=== PATIENT | female | born 1980 | race Caucasian/White ===

== ENCOUNTER 2017-03-12 17:56 | Emergency (ER) | payer SELFPAY ==
[~2017-03-12] VITALS: Ht 157.5 cm; Wt 70.0 kg
[~2017-03-12 17:56] MED LIST: CEPH500C3 PO; CYMB60CA PO; HYDR12.56; MELO15 PO; ROBA500T PO
[2017-03-12 18:00] VITALS: BP 154/95; PULSE 96; RESP 16; TEMP 98.9; O2SAT 100
[2017-03-12] MEDS ORDERED: VENL75TA PO (18:17)
[2017-03-12] MEDS ORDERED: LOSA50TA PO (18:17)
[2017-03-12] MEDS ORDERED: CLON0.5T PO (18:17)
[2017-03-12] MEDS ORDERED: TRIA0.1L TOPICAL (18:54)
[2017-03-12] MEDS ORDERED: PRED50 PO (18:55)
[2017-03-12] MEDS ORDERED: diphenhydrAMINE HCL 50 MG/ML VIAL IM ONE (19:00)
--- NOTE | 2017-03-12 19:04 | PD ---
HPI . Contact dermatitis Chief Complaint: Skin Problem Time Seen by Provider: 18:40 Travel History International Travel<30 days: No Contact w/Intl Traveler<30days: No Traveled to known affect area: No History of Present Illness HPI Well-nourished, well-developed nontoxic appearing 37-year-old female presents emergency department for evaluation of itchy red rash covering abdomen, back, and upper arms. Patient recently had a change in her living conditions and a lot of her belongings were thrown in a garbage can. Patient went into the garbage can to retrieve her belongings and subsequently has developed this itchy rash. Patient's only major medical history is hypertension and she takes losartan daily for. Patient states she did have a fever earlier today but is afebrile in triage. Patient denies any chest pain, chills, malaise, abdominal pain, nausea, vomiting, diarrhea. PFSH Past Medical History Anxiety: Yes Depression: Yes Diminished Hearing: No Hypertension: Yes Reproductive: Yes (OVARIAN CYST) Immunizations Current: Yes Influenza Vaccination: Yes ?: Not LMP: 02/21/17 : 4 Para: 2 Miscarriage: 1 : 1 Social History Alcohol Use: Yes (rarely) Tobacco Use: Yes Substance Use: No Allergies-Medications (Allergen,Severity, Reaction): Coded Allergies: No Known Allergies (Verified Adverse Reaction, Unknown, 03/12/17) Reported Meds & Prescriptions Reported Meds & Active Scripts Active Reported Clonazepam 0.5 Mg Tab 0.5 Mg PO BID PRN Effexor (Venlafaxine HCl) 75 Mg Tab 75 Mg PO Q12H Losartan (Losartan Potassium) 50 Mg Tab 50 Mg PO BID Review of Systems Except as stated in HPI: all other systems reviewed are Neg Physical Exam Narrative GENERAL: Well-nourished, well-developed 37 year old female patient in no acute distress. Nontoxic appearing. SKIN: Splotchy erythematous patches covering abdomen, back, and upper arms. HEAD: Normocephalic. Atraumatic. EYES: No scleral icterus. No injection or drainage. NECK: Supple, trachea midline. No JVD or lymphadenopathy. CARDIOVASCULAR: Regular rate and rhythm without murmurs, gallops, or rubs. RESPIRATORY: Breath sounds equal bilaterally. No accessory muscle use. GASTROINTESTINAL: Abdomen soft, non-tender, nondistended. MUSCULOSKELETAL: No cyanosis, or edema. BACK: Nontender without obvious deformity. No CVA tenderness. Data Data Last Documented VS Vital Signs Date Time Temp Pulse Resp B/P (MAP) Pulse Ox O2 Delivery O2 Flow Rate FiO2 03/12/17 18:00 98.9 96 16 154/95 (114) 100 Orders Orders Diphenhydramine Inj (Benadryl Inj) (03/12/17 19:00) MDM Medical Decision Making Medical Screen Exam Complete: Yes Emergency Medical Condition: Yes Differential Diagnosis Differential diagnoses include but not limited to contact dermatitis, allergic dermatitis, cellulitis, Narrative Course 37-year-old female patient presents emergency department for evaluation of an itchy splotchy red rash covering her abdomen, back and upper arms. Patient states the rash started yesterday when she had to jump into a garbage can to retrieve some of her belongings. Patient is nontoxic appearing. Patient states she had a fever earlier at home but is afebrile in triage. There is no signs of local infection including edema, streaking, purulent drainage at this time. Patient is scratching arms and stomach. Patient instructed to use Benadryl to manage itching to reduce scratching which will reduce the risk of secondary infection. I am injection of Benadryl given in our facility. Patient discharged home with a prescription for prednisone, triamcinolone cream and instructions to use [id number] Benadryl and ibuprofen to manage symptoms. Patient instructed to return the emergency Department with any worsening condition or signs of secondary infection. Diagnosis Primary Impression: Contact dermatitis Qualified Codes: L25.9 - Unspecified contact dermatitis, unspecified cause Referrals: Primary Care Physician Patient Instructions: Contact Dermatitis (ED), General Instructions Additional Instructions: Please return to emergency department if your symptoms return or worsen. Follow up with your primary care provider. Take medications as prescribed. Keep area clean and dry. Use Benadryl to manage itching. May use ibuprofen to manage pain and swelling. Med/Other Pt SpecificInfo: Prescription(s) given Scripts Prednisone (Prednisone) 50 Mg Tab 50 MG PO DAILY for 3 Days, #3 TAB 0 Refills Prov: Rupal Don Alayna JACI 03/12/17 Triamcinolone Topical (Triamcinolone Topical) 0.1% Lotn 1 APPLIC TOPICAL TID for Inflammation, #60 ML 0 Refills Prov: Rupal Don 03/12/17 Disposition: 01 DISCHARGE HOME Condition: Stable Rupal Don Mar 12, 2017 19:04
== END 2017-03-12 19:17 | disposition home or self-care (01) ==
LOC: PHEFT 17:56
DX: L25.9 Unspecified contact dermatitis, unspecified cause (principal); Z72.0 Tobacco use
CPT/HCPCS: 96372; 99284; J1200

== ENCOUNTER 2017-03-25 21:48 | Emergency (ER) | payer SELFPAY ==
[~2017-03-25] VITALS: Ht 157.5 cm; Wt 68.1 kg
[~2017-03-25 21:48] MED LIST changes: -CEPH500C3 PO; +CLON0.5T PO; -CYMB60CA PO; -HYDR12.56; +LOSA50TA PO; -MELO15 PO; +PRED50 PO; -ROBA500T PO; +TRIA0.1L TOPICAL; +VENL75TA PO
[2017-03-25 22:05] VITALS: BP 142/102; PULSE 64; PULSE 68; RESP 20; TEMP 99.1; O2SAT 99
[2017-03-25] MEDS ORDERED: SODIUM CHLORIDE 0.9% FLUSH 10 ML FLUSH IVF PRN (22:15)
[2017-03-25 22:19] LABS: AUTOMATED NEUTROPHIL # 4.4 TH/MM3 (1.8-7.7); BASOPHIL # 0.1 TH/MM3 (0-0.2); BASOPHIL % 0.8 % (0.0-2.0); EOSINOPHIL # 0.4 TH/MM3 (0-0.4); EOSINOPHIL % 5.2 % (0.0-4.0); HEMATOCRIT 37.6 % (35.0-46.0); LYMPH % 25.3 % (9.0-44.0); LYMPHOCYTE # 1.8 TH/MM3 (1.0-4.8); MEAN CELL VOLUME 72.8 FL (80.0-100.0); MEAN CORPUSCULAR HGB CONC 31.6 % (32.0-36.0); MONO % 6.5 % (0.0-8.0); NEUT % 62.2 % (16.0-70.0); PLATELET COUNT 299 TH/MM3 (150-450); RED BLOOD COUNT 5.17 MIL/MM3 (4.00-5.30); RED CELL DISTRIBUTION WIDTH 15.3 % (11.6-17.2); WHITE BLOOD COUNT 7.3 TH/MM3 (4.0-11.0)
[2017-03-25 22:25] LABS: CHLORIDE 103 MEQ/L (98-107); POTASSIUM 3.8 MEQ/L (3.5-5.1); SODIUM (NA) 136 MEQ/L (136-145)
[2017-03-25 22:29] LABS: ANION GAP 6 MEQ/L (5-15); APTT (PATIENT) 26.2 SEC (24.3-30.1); BICARBONATE 26.6 MEQ/L (21.0-32.0); BLOOD UREA NITROGEN 8 MG/DL (7-18); PROTHROMBIN TIME - PATIENT 10.9 SEC (9.8-11.6)
[2017-03-25 22:32] LABS: ALT (GPT) 18 U/L (10-53); AST (GOT) 9 U/L (15-37); GLOMERULAR FILTRATION RATE 69 ML/MIN (>89)
[2017-03-25 22:33] LABS: TOTAL BILIRUBIN ADULT 0.4 MG/DL (0.2-1.0)
[2017-03-25 22:35] LABS: ALKALINE PHOSPHATASE 68 U/L (45-117)
[2017-03-25 22:37] LABS: BETA HCG QUANT LESS THAN 1 MIU/ML (0-5)
--- NOTE | 2017-03-25 22:45 | RADRPT ---
EXAM DATE/TIME: 03/25/2017 22:18 [facility] COMPARISON: CHEST SINGLE AP, January 10, 2014, 16:02. INDICATIONS : Left arm pain and numbness today. MEDICAL HISTORY : None. SURGICAL HISTORY : None. ENCOUNTER: Initial ACUITY: 1 day PAIN SCORE: 4/10 LOCATION: Bilateral chest FINDINGS: A single view of the chest demonstrates the lungs to be symmetrically aerated without evidence of mas s, infiltrate or effusion. The cardiomediastinal contours are unremarkable. Osseous structures are intact. CONCLUSION: The lungs are clear. Coleman Hernandez MD on March 25, 2017 at 22:43 Board Certified Radiologist. This report was verified electronically.
[2017-03-25 22:46] LABS: HEMO FLAGS AUTO DIFF
[2017-03-25 22:52] LABS: CREATINE KINASE 68 U/L (26-192)
[2017-03-25 23:12] LABS: PLATELET ESTIMATE SMEAR NORMAL (NORMAL); PLATELET MORPHOLOGY NORMAL (NORMAL); SCAN/DIFF AUTO DIFF CONFIRMED
[2017-03-25 23:17] VITALS: BP 115/74; PULSE 58; RESP 20; O2SAT 97
[2017-03-25] MEDS ORDERED: PRIL20TA2 PO (23:18)
[2017-03-25] MEDS ORDERED: TRAM50TA PO (23:19)
[2017-03-25] MEDS ORDERED: ADDE20 PO (23:19)
--- NOTE | 2017-03-25 23:28 | RADRPT ---
EXAM DATE/TIME: 03/25/2017 22:57 [facility] COMPARISON: No previous studies available for comparison. INDICATIONS : Left arm pain and numbness. RADIATION DOSE: 60.01 CTDIvol (mGy) MEDICAL HISTORY : Hypertension. SURGICAL HISTORY : None. ENCOUNTER: Initial ACUITY: 1 day PAIN SCALE: 4/10 LOCATION: cranial TECHNIQUE: Multiple contiguous axial images were obtained of the head. Using automated exposure control and adj ustment of the mA and/or kV according to patient size, radiation dose was kept as low as reasonably a chievable to obtain optimal diagnostic quality images. DICOM format image data is available electro nically for review and comparison. FINDINGS: CEREBRUM: The ventricles are normal for age. No evidence of midline shift, mass lesion, hemorrhage or acute in farction. No extra-axial fluid collections are seen. POSTERIOR FOSSA: The cerebellum and brainstem are intact. The 4th ventricle is midline. The cerebellopontine angle i s unremarkable. EXTRACRANIAL: The visualized portion of the orbits is intact. SKULL: The calvaria is intact. No evidence of skull fracture. CONCLUSION: Negative noncontrast head CT. Efren Singer MD on March 25, 2017 at 23:26 Board Certified Radiologist. This report was verified electronically.
--- NOTE | 2017-03-25 23:36 | RADRPT ---
EXAM DATE/TIME: 03/25/2017 22:57 [facility] COMPARISON: No previous studies available for comparison. INDICATIONS : Left arm pain and numbness. RADIATION DOSE: 26.36 CTDIvol (mGy) MEDICAL HISTORY : Hypertension. SURGICAL HISTORY : None. ENCOUNTER: Initial ACUITY: 1 day PAIN SCALE: 4/10 LOCATION: neck TECHNIQUE: Volumetric scanning of the cervical spine was performed. Multiplanar reconstructions in the sagittal, coronal and oblique axial planes were performed. Using automated exposure control and adjustment o f the mA and/or kV according to patient size, radiation dose was kept as low as reasonably achievable to obtain optimal diagnostic quality images. DICOM format image data is available electronically f or review and comparison. FINDINGS: VERTEBRAE: Normal vertebral body height. ALIGNMENT: No evidence of subluxation. C2-C3: The bony spinal canal is normal in size. No evidence of disc bulge or herniation. The neural forami na are bilaterally patent. C3-C4: The bony spinal canal is normal in size. No evidence of disc bulge or herniation. The neural forami na are bilaterally patent. C4-C5: The disc has mild loss of height. There is mild uncovertebral and facet osteoarthritis on the left wi th mild left foraminal stenosis. C5-C6: The disc has moderate loss of height. A small, broad/diffuse disc osteophyte complex is present and w ith mild bilateral uncovertebral and facet osteoarthritis with hypertrophic bone formation. There is a superimposed moderate-sized left paracentral/foraminal disc protrusion. There is associated moderat e left foraminal stenosis. C6-C7: The bony spinal canal is normal in size. No evidence of disc bulge or herniation. The neural forami na are bilaterally patent. C7-T1: The bony spinal canal is normal in size. No evidence of disc bulge or herniation. The neural forami na are bilaterally patent. CONCLUSION: 1. Intact cervical spine. 2. Degenerative changes with mild left foraminal stenosis at C4/C5 and moderate left foraminal stenos is at C5/C6. Efren Singer MD on March 25, 2017 at 23:31 Board Certified Radiologist. This report was verified electronically.
--- NOTE | 2017-03-26 00:49 | PD ---
HPI Chief Complaint: Chest Pain Time Seen by Provider: 22:02 Travel History International Travel<30 days: No Contact w/Intl Traveler<30days: No Traveled to known affect area: No History of Present Illness HPI 37-year-old female with history of hypertension, anxiety, history for evaluation of 10 minutes of left arm pain and numbness as well as palpitations. Patient reports that she was well up until 10 minutes ago when she initially felt fatigued, then began experiencing her symptoms. Pain in her arm is moderate, dull, diffuse, no modifying factors. She denies trauma. No other paresthesias. No motor deficits. She complains of slight blurry vision. Patient admits to having history of anxiety/panic attacks, and believes that this may be exacerbating her symptoms. She is supposed to be on Klonopin, however has been out of this medication for the last 2-3 weeks. No known history of cardiac disease. No fevers or recent illness. PFSH Past Medical History ADD: Yes Anxiety: Yes Depression: Yes Diminished Hearing: No Hypertension: Yes Medical other: Yes (CHRONIC BACK PAIN ) Reproductive: Yes (OVARIAN CYST) Immunizations Current: Yes Tetanus Vaccination: < 5 Years Influenza Vaccination: Yes ?: Unknown LMP: 4 DAYS AGO : 5 Para: 3 Miscarriage: 1 : 1 Past Surgical History Section: Yes Social History Alcohol Use: No Tobacco Use: Yes (1/2 ppd ) Substance Use: No Allergies-Medications (Allergen,Severity, Reaction): Coded Allergies: No Known Allergies (Verified Adverse Reaction, Unknown, 03/25/17) Reported Meds & Prescriptions Reported Meds & Active Scripts Active Triamcinolone Topical (Triamcinolone Acetonide) 0.1% Lotn 1 Applic TOPICAL TID Reported Tramadol (Tramadol HCl) 50 Mg Tab 50 Mg PO Q8H PRN Adderall (Amphetamine-Dextroamphetamine) 20 Mg Tab 20 Mg PO BID Avoid late evening doses. Space doses at least 4 to 6 hours if more than once/day dosing. Prilosec (Omeprazole Magnesium) 20 Mg Tab 20 Mg PO DAILY Clonazepam 0.5 Mg Tab 0.5 Mg PO TID Effexor (Venlafaxine HCl) 75 Mg Tab 75 Mg PO Q12H Losartan (Losartan Potassium) 50 Mg Tab 50 Mg PO BID Review of Systems Except as stated in HPI: all other systems reviewed are Neg Physical Exam Narrative GENERAL: Well-developed, well-nourished, awake, alert, GCS 15, no apparent distress. SKIN: Focused skin assessment warm/dry. No rash. HEAD: Atraumatic. Normocephalic. EYES: Pupils equal, round, 3 mm, reactive to light. EOMI. No scleral icterus. No injection or drainage. ENT: Mucous membranes pink and moist. NECK: Trachea midline. No JVD. CARDIOVASCULAR: Regular rate and rhythm. RESPIRATORY: No accessory muscle use. Clear to auscultation. Breath sounds equal bilaterally. GASTROINTESTINAL: Abdomen soft, non-tender, nondistended. MUSCULOSKELETAL: No obvious deformities. No clubbing. No cyanosis. No edema. NEUROLOGICAL: Awake and alert. No obvious cranial nerve deficits. Motor grossly within normal limits. Normal speech. No focal deficits. Normal muscle strength in all 4 extremities. Patient has sensation in her left upper extremity, however states it feels numb. No other paresthesias. PSYCHIATRIC: Appropriate mood and affect; insight and judgment normal. Data Data Last Documented VS Vital Signs Date Time Temp Pulse Resp B/P (MAP) Pulse Ox O2 Delivery O2 Flow Rate FiO2 03/25/17 22:45 20 99 Room Air 03/25/17 22:05 99.1 68 142/102 (115) Orders Orders Electrocardiogram (03/25/17 22:02) Prothrombin Time / Inr (Pt) (03/25/17 22:02) Act Partial Throm Time (Ptt) (03/25/17 22:02) Complete Blood Count With Diff (03/25/17 22:02) Comprehensive Metabolic Panel (03/25/17 22:02) Creatine Kinase (Cpk) (03/25/17 22:02) Troponin I (03/25/17 22:02) Ct Brain W/O Iv Contrast(Rout) (03/25/17 22:02) Chest, Single Ap (03/25/17 22:02) Ecg Monitoring (03/25/17 22:02) Iv Access Insert/Monitor (03/25/17 22:02) Oximetry (03/25/17 22:02) Sodium Chloride 0.9% Flush (Ns Flush) (03/25/17 22:15) Ct Cerv Spine W/O Contrast (03/25/17 ) Beta Hcg (Quant/Titer) (03/25/17 22:02) Labs Laboratory Tests Test 03/25/17 22:05 White Blood Count 7.3 TH/MM3 Red Blood Count 5.17 MIL/MM3 Hemoglobin 11.9 GM/DL Hematocrit 37.6 % Mean Corpuscular Volume 72.8 FL Mean Corpuscular Hemoglobin 23.0 PG Mean Corpuscular Hemoglobin Concent 31.6 % Red Cell Distribution Width 15.3 % Platelet Count 299 TH/MM3 Mean Platelet Volume 7.9 FL Neutrophils (%) (Auto) 62.2 % Lymphocytes (%) (Auto) 25.3 % Monocytes (%) (Auto) 6.5 % Eosinophils (%) (Auto) 5.2 % Basophils (%) (Auto) 0.8 % Neutrophils # (Auto) 4.4 TH/MM3 Lymphocytes # (Auto) 1.8 TH/MM3 Monocytes # (Auto) 0.5 TH/MM3 Eosinophils # (Auto) 0.4 TH/MM3 Basophils # (Auto) 0.1 TH/MM3 CBC Comment AUTO DIFF Differential Comment AUTO DIFF CONFIRMED Platelet Estimate NORMAL Platelet Morphology Comment NORMAL Prothrombin Time 10.9 SEC Prothromb Time International Ratio 1.0 RATIO Activated Partial Thromboplast Time 26.2 SEC Blood Urea Nitrogen 8 MG/DL Creatinine 0.92 MG/DL Random Glucose 82 MG/DL Total Protein 7.7 GM/DL Albumin 3.7 GM/DL Calcium Level 8.5 MG/DL Alkaline Phosphatase 68 U/L Aspartate Amino Transf (AST/SGOT) 9 U/L Alanine Aminotransferase (ALT/SGPT) 18 U/L Total Bilirubin 0.4 MG/DL Sodium Level 136 MEQ/L Potassium Level 3.8 MEQ/L Chloride Level 103 MEQ/L Carbon Dioxide Level 26.6 MEQ/L Anion Gap 6 MEQ/L Estimat Glomerular Filtration Rate 69 ML/MIN Total Creatine Kinase 68 U/L Troponin I LESS THAN 0.02 NG/ML Human Chorionic Gonadotropin, Quant LESS THAN 1 MIU/ML MDM Medical Decision Making Medical Screen Exam Complete: Yes Emergency Medical Condition: Yes Interpretation(s) EKG: Sinus, rate 59, normal axis, normal intervals, no acute ischemic abnormality. Differential Diagnosis Panic attack, anxiety, ACS, pneumothorax, PE, CVA, cervical disc herniation Narrative Course Initial vital signs show heart rate 64, blood pressure 142/102, pulse ox 99% on room air, oral temp of 99.1F. Repeat vital signs show pressure 115/64. CBC: WBC 7.3, hemoglobin 11.9, hematocrit 37.6, platelets 299. CMP is unremarkable. Cardiac enzymes are negative. Beta hCG is negative. Patient was probably taken to CT scan as the nurse assigned to her was concerned about possible CVA. The patient's symptoms consist of pain and paresthesias to her left arm. There are no focal deficits on exam. Normal muscle strength in all 4 extremities. No facial droop, dysarthria, aphasia, or slurred speech. This is not consistent with CVA, therefore stroke alert was not initiated. Chest x-ray: The lungs are clear. CT head: Negative noncontrast head CT. CT cervical spine: CONCLUSION: 1. Intact cervical spine. 2. Degenerative changes with mild left foraminal stenosis at C4/C5 and moderate left foraminal stenosis at C5/C6. Patient was made aware of all findings, and on reassessment she states her symptoms have significantly improved. She is no longer feeling palpitations. She still has some pain down her left arm. Numbness has improved. Again the patient signs and symptoms were not consistent with CVA or even TIA. I also do not believe her symptoms are consistent with ACS. Patient also agrees with this and believes that her symptoms are more likely related to anxiety/panic attack. I had a lengthy discussion with the patient, and believe that she is stable for discharge home with further workup as an outpatient. I will give her the information to the [facility] to follow up with this week as she no longer has a primary care physician. I have also advised that she follow-up with her psychiatrist as soon as possible. Patient informed on when to return to the emergency department. She verbalizes understanding and agreement with plan. Diagnosis Primary Impression: Paresthesia of left upper extremity Additional Impression: Palpitations Referrals: [facility] 3 days Primary Care Physician 3 days Psychiatrist 3 days Additional Instructions: Follow-up with a primary care physician and psychiatrist this week. Return to the emergency department for any other concerns. Disposition: 01 DISCHARGE HOME Condition: Stable Chase Davenport MD Mar 26, 2017 00:49
[2017-03-26 01:14] VITALS: BP 118/85; PULSE 57; RESP 16; TEMP 98.9; O2SAT 100
--- NOTE | 2017-03-26 09:07 | EKG ---
Date Performed: 03/25/2017 Time Performed: 22:14:18 PTAGE: 37 years EKG: SINUS BRADYCARDIA BORDERLINE ECG PREVIOUS TRACING : 01/10/2014 16.18 DOCTOR: José Miguel Shah Interpretating Date/Time 03/26/2017 09:05:17
== END 2017-03-26 01:17 | disposition home or self-care (01) ==
LOC: PHED 21:48
DX: R20.2 Paresthesia of skin (principal); R00.2 Palpitations; I10 Essential (primary) hypertension; F17.200 Nicotine dependence, unspecified, uncomplicated
CPT/HCPCS: 70450; 71010; 72125; 80053; 82550; 84484; 84702; 85025; 85610; 85730; 93005